=== PATIENT | female | born 1930 | race Caucasian/White ===

== ENCOUNTER 2016-10-24 05:03 | Inpatient (IN) | payer MEDICARE, OTHER ==
[2016-10-16 11:16] LABS: ASCORBIC ACID (UR NOT ORDER) NEG (NEG); BILIRUBIN, URINE NEGATIVE (NEG); KETONE, URINE NEGATIVE (NEG); LEUKOCYTE ESTERASE(NOT OR NEG (NEG); WBC (NOT ORDERED) (RFLEX) 1 (0-5)
[2016-10-16 11:20] LABS: BASOPHILS 1.1 %; BASOPHILS ABSOLUTE 0.06 10/3/uL (0.0-0.16); EOSINOPHILS 7.2 %; HEMATOCRIT 34.5 % (36.0-48.0); HEMOGLOBIN 10.8 g/dL (12.0-16.0); IMMATURE GRANULOCYTES 0.2 %; IMMATURE GRANULOCYTES ABSOLUTE 0.01 10/3/uL (0.0-0.11); LYMPHOCYTES 15.6 %; LYMPHOCYTES ABSOLUTE 0.86 10/3/uL (0.67-4.30); MEAN CORPUS HGB CONC 31.3 g/dL (32.0-36.0); MEAN CORPUSCULAR HEMOGLOB 29.6 pg (26.0-34.0); MEAN PLATELET VOLUME 8.7 fL (9.2-13.0); MONOCYTES 9.8 %; MONOCYTES ABSOLUTE 0.54 10/3/uL (0.21-1.20); NEUTROPHILS 66.1 %; NEUTROPHILS ABSOLUTE 3.65 10/3/uL (2.02-8.40); PLATELET COUNT 247 10/3/uL (150-400); RBC DISTRIBUTION WIDTH 16.3 % (12.0-16.0); RED CELL COUNT 3.65 10/6/uL (4.0-5.6); WHITE BLOOD CELLS 5.5 10/3/uL (4.5-10.5)
[2016-10-16 11:23] LABS: MANUAL DIFF NO %; MEAN CORPUSCULAR VOLUME 94.5 fL (80-100)
[2016-10-16 11:37] LABS: A/G RATIO 0.9 (0.7-1.9); ALBUMIN 3.2 G/DL (3.5-5.0); CALCIUM, SERUM 8.2 MG/DL (8.5-10.4); CHLORIDE, SERUM 102 MMOL/L (96-112); CO2 (CARBON DIOXIDE) 33 MMOL/L (24-34); CREATININE 1.26 MG/DL (0.55-1.02); GFR AFRICAN AMERICAN 46 ML/MIN (>=60); GFR NON AFRICAN AMERICAN 39 ML/MIN (>=60); GLOBULIN 3.7 G/DL (2.5-4.1); SGOT(AST) 40 U/L (5-40); SGPT(ALT) 33 U/L (5-65); SODIUM, SERUM 137 MMOL/L (135-148); TOTAL BILIRUBIN 0.4 MG/DL (0-1.2); TOTAL PROTEIN 6.9 G/DL (6.0-8.5)
[2016-10-16 11:38] LABS: ALKALINE PHOSPHATASE 106 U/L (45-117); BUN (BLOOD UREA NITROGEN) 26 MG/DL (6-23); GLUCOSE, SERUM 87 MG/DL (60-99)
[2016-10-16 11:58] LABS: INTERNATIONAL NORMAL RATI 1.2 UNITS (-); PROTIME (NOT ORD) 15.2 SEC (12.0-14.5)
[2016-10-16 12:55] LABS: GLYCOHEMOGLOBIN (HbA1c) 5.7 % (4.7-6.1)
[2016-10-16 13:51] LABS: B NATRIURETIC PEPTIDE (BNP) 302.5 PG/ML (< 100.0)
--- NOTE | ~2016-10-24 | DS ---
Discharge Summary [facility] [address] [place]. [address] NAME: FRANCK BUTLER : 32 STATUS : DIS IN PAT#: [id number] AGE: 85 ADM/REG DATE : 10/24/16 MR#: [id number] REPORT SERV DATE: 11/11/16 DICTATED BY: JESSICA PEREZ DATE: 11/10/16 REPORT STATUS : Draft TRANSCRIBED BY: BRENDA DATE: 11/10/16 Data Collection from hospitalization DISCHARGE DIAGNOSES: 1. Mitral valve regurgitation, status post MitraClip. 2. Hypertension. 3. Atrial fibrillation. 4. Sick sinus syndrome, status post pacer. 5. Pericardial effusion, status post drainage. 6. Right groin hematoma. 7. Hyperlipidemia. 8. Hypothyroidism. 9. Remote history of subarachnoid bleed. 10.History of orthostatic hypotension. 11.Pulmonary hypertension. CONSULTATIONS: Delfino Kramer M.D. PROCEDURES PERFORMED: Right transfemoral venous MitraClip procedure on 10/24/2016. MEDICATIONS: Aspirin 81 mg daily, Synthroid 75 mcg every morning, Zocor 20 mg at bedtime, Plavix 75 mg at bedtime, vitamin B12 1000 mcg IM every 30 days, Demadex 20 mg every morning, Klor-Con 16 mEq every morning, Cordarone 200 mg twice a day, and ProAir two puffs via inhaler every four hours as needed. CONDITION AT DISCHARGE: Stable. DISPOSITION: The patient was discharged to [facility] with diet and activities as instructed. She would follow up in the Valve Clinic on 11/23/2016. She would have an echocardiogram performed on 11/23/2016. She would follow up with Dr. Nate Armando on 01/09/2017. 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 Recent cardiac catheterization had revealed severe pulmonary hypertension. The patient has a history of permanent atrial fibrillation, heart failure, prior spontaneous intracranial hemorrhage and multiple fall. Transesophageal echocardiogram demonstrated severe mitral regurgitation with pulmonary venous flow reversal. She had been seen by the [facility] Team who felt she was a good candidate for a mitral valve MitraClip procedure. Treatment options had been discussed and it was elected to proceed with surgical intervention. She was admitted to the hospital at this time for further evaluation and treatment. Upon admission, she was taken to the hybrid room where she underwent the above-mentioned procedure. She tolerated this well, and there were no complications. The following day, an echocardiogram was performed. She was seen by Dr. Delfino Kramer. The patient had a right groin hematoma. There was no evidence of active bleeding. She had no chest pain or dyspnea. The drain remained in place. The patient was transfused two units of packed red blood cells. She was on Levophed. She was transfused. Discharge Summary [facility] [address] [place]. [address] NAME: FRANCK BUTLER : 32 STATUS : DIS IN PAT#: [id number] AGE: 85 ADM/REG DATE : 10/24/16 MR#: [id number] REPORT SERV DATE: 11/11/16 DICTATED BY: JESSICA PEREZ DATE: 11/10/16 REPORT STATUS : Draft TRANSCRIBED BY: BRENDA DATE: 11/10/16 On 10/26/2016, she had no chest pain or dyspnea. IV Levophed was stopped. Nausea had resolved. There had been 60 mL out of the drain over the past 24 hours. The drain remained in place. She has a decreased platelet count. Pepcid was stopped. Amiodarone was discontinued. Groin site was stable. The next day, there had been no issues overnight. Pericardial drain remained in place. Her nausea had improved. We encouraged her to increase her activity. Her anemia improved. Plavix was going to be added back to her regimen. She was evaluated by Occupational and Physical Therapy. A limited echocardiogram was performed. She was up sitting in a chair. On 10/28/2016, she felt well. Her discomfort had decreased. There were no new issues. There was some bruising in the right groin. The patient had a large hematoma with failed ProGlide during surgery. The next day, she had complaints of right leg pain only. She had no chest pain or shortness of breath. Discharge planning was performed. On 10/30/2016, she still complained of pain and bruising and limited range of motion in the right leg. She said she felt well. She was ambulating in the halls with assistance. Discharge instructions were given. Due to her improved and stable condition, she was discharged to [facility] with the above-stated instructions. Information collected by: Ladi Rodriguez I submit the above information as my discharge summary. MARIBEL/BRENDA Jessica Perez M.D. / [id number] CC: Freddy Lackey AZHAR S. [facility]
--- NOTE | ~2016-10-24 | OP ---
Record Of Operation [facility] [address] [place]. [address] NAME: KAREN BRISCOE : 32 STATUS : ADM IN PAT#: [id number] AGE: 85 ADM/REG DATE : 10/24/16 MR#: [id number] REPORT SERV DATE: 10/30/16 DICTATED BY: JESSICA PEREZ DATE: 10/24/16 REPORT STATUS : Draft TRANSCRIBED BY: BRENDA DATE: 10/24/16 DATE OF PROCEDURE: 10/24/2016 MITRACLIP NOTE PROCEDURE: Right transfemoral venous MitraClip procedure. INDICATIONS FOR THE PROCEDURE: Ms. Karen Briscoe is an 85-year-old woman with severe mitral regurgitation. She presents with class III [place] [employer] heart failure. Her history is also remarkable for permanent atrial fibrillation, permanent pacemaker, prior spontaneous intracranial hemorrhage, multiple falls. Her transesophageal echocardiogram demonstrated severe mitral regurgitation, with pulmonary venous flow reversal. Her predicted mortality with STS score for mitral valve repair was 4.6%, predicted morbidity and mortality of 24%. Her predicted mortality for mitral valve replacement was 8.1%, for morbidity and mortality 32%. She had very poor strength and was frail. She was seen by [facility] Valve Clinic team, who felt she was a good candidate for a mitral valve, MitraClip procedure. She saw Dr. Neville, Thoracic Surgery, who agreed that she was a good candidate for mitral valve clipping procedure, with [place] MitraClip device, rather than mitral valve repair. POSTOPERATIVE DIAGNOSES: 1. Successful repair of mitral regurgitation using one [place] MitraClip device. 2. Image of pericardial tamponade with pigtail catheter. OPERATIVE TECHNIQUE: Informed consent was obtained from the patient. The procedure was performed in the hybrid room, the patient was placed in the supine position. The patient was intubated, had a Patrick catheter inserted, a radial A-line, and a right heart catheter, placed via the right IJ approach. This procedure was performed with the assistance of the [employer] MitraClip contracts representative. The patient was prepped and draped in the usual sterile fashion. The right groin was anesthetized with lidocaine 1% 8 mL. Access of the right femoral vein was easily obtained using micropuncture technique. Two ProGlide sutures were placed at the 10 o'clock and 2 o'clock position in the pre-close technique. We proceeded with a transseptal puncture using the Anirudh Transseptal System. The Anirudh transseptal sheath was placed into the superior vena cava over the 0.32 inch wire. The transseptal sheath was pulled into the right atrium under fluoroscopic and transesophageal echocardiogram guidance. The optimal location for the transseptal puncture was identified by transesophageal echocardiogram using both the short and bicaval views. The transseptal puncture was performed with a Anirudh System. Once access to the left atrium was confirmed, heparin was delivered to maintain activated clotting time greater than 250 seconds. Once we were in the left atrium, the dilator and sheath were advanced in the left atrium, with position confirmed by transesophageal echocardiogram in the left atrium, away from the left atrial wall, and the Anirudh FloTrack wire was placed into the left atrium. Record Of Operation [facility] [address] [place]. [address] NAME: KAREN BRISCOE : 32 STATUS : ADM IN PAT#: [id number] AGE: 85 ADM/REG DATE : 10/24/16 MR#: [id number] REPORT SERV DATE: 10/30/16 DICTATED BY: JESSICA PEREZ DATE: 10/24/16 REPORT STATUS : Draft TRANSCRIBED BY: BRENDA DATE: 10/24/16 Once the FloTrack wire was in the left atrium, the right groin was dilated using the 14 and 20-Iranian dilators. [place] Steerable Guide Catheter was carefully de-aired, advanced across the interatrial septum into the left atrium. The Clip Delivery System was then advanced into the left atrium. Using BHANU guidance and following the [place] MitraClip instructions for use, the clip was delivered over the regurgitant jet. The clip was aligned perpendicular to the mitral regurgitation jet prior to enter the left ventricle. The leaflets were then grasped and leaflet insertion confirmed prior to mitral clip closure. The results were assessed prior to clip deployment. There was reduction of the mitral regurgitation from severe to mild. The gradient across the mitral valve was assessed. The leaflet insertion into the clip was confirmed, the reduction of the mitral regurgitation from severe to mild was confirmed, the resolution of the pulmonary vein flow reversal was confirmed as well. The [place] MitraClip was successfully deployed. The Clip Delivery System was removed. The steerable guide catheter was removed. The two ProGlide sutures were tightened to obtain hemostasis. However, both ProGlide sutures . Manual pressure was held, and Dr. Neville placed a eggvit-ob-pluee suture at the access site. During the procedure, the patient became hypotensive. The transesophageal echocardiogram and transthoracic echocardiogram demonstrated a medium-sized pericardial effusion. With successful deployment of a MitraClip, the heparin was reversed with protamine. The chest wall was prepped and draped in the usual sterile fashion. Lidocaine 1% 3 mL was used to anesthetize the area below the subxiphoid process. A pericardiocentesis kit was used, with antegrade aspiration, blood was immediately removed from the pericardial space. A total 500 mL of blood was aspirated. This blood was discarded. We then placed a wire into the pericardial space, confirmed by echocardiogram and fluoroscopy. A pigtail catheter was placed in to the pericardium. Repeat echocardiogram, while she is still in the room 30 minutes later demonstrated no reaccumulation of the pericardial fluid. The patient was transferred to the CVICU, intubated, the right heart catheter in position, the radial A-line in position, a FemoStop at the right groin to maintain pressure on the access site, and a pigtail catheter in the pericardial space. The total fluoro time was 32.1 minute. The total radiation dose was 252 mGy. The DAP was 6911 Gy/M2. The procedure start time was 7:34 a.m. on 10/24/2016, the anesthesia inducti was 7:48 a.m., the procedure access was performed at 7:55 a.m., the transseptal access was performed at 8:49 a.m., the steerable guide catheter was placed across the interatrial septum at 9:39 a.m. The last cath, BHANU removal was at 12:37 p.m. The septum was crossed at 8:50 a.m. The delivery system was retracted at 12:01 a.m. The steerable guide catheter was removed at 12:05 p.m. The patient had primary degenerative mitral regurgitation, with a central jet. The vena contract was 0.8 cm, the EROA was 0.48 sq cm, regurgitant volume was 86 mL. The mitral valve area by planimetry of 4.2 sq cm. There was pulmonary flow reversal prior to this Record Of Operation [address] [place]. [address] NAME: KAREN BRISCOE : 32 STATUS : ADM IN PAT#: [id number] AGE: 85 ADM/REG DATE : 10/24/16 MR#: [id number] REPORT SERV DATE: 10/30/16 DICTATED BY: JESSICA PEREZ DATE: 10/24/16 REPORT STATUS : Draft TRANSCRIBED BY: BRENDA DATE: 10/24/16 procedure. Ejection fraction of 55% to 60%. There was 2+ tricuspid regurgitation. The septal crossing height was 3.9 mm. The mean gradient was 2 mmHg. Postprocedure, there was 2+ mitral regurgitation, medium. The mitral valve area of lateral orifice was 1.6 sq cm, 1.8 sq cm in the medial orifice. There was no flow reversal. Ejection fraction 50% to 55%. The right ventricle systolic pressure was approximately 29 mmHg. The mean gradient across the mitral valve and lateral orifice was 2 mmHg, 2 mmHg in the medial orifice. In short, Ms. Briscoe underwent successful mitral valve repair using one MitraClip via the right transfemoral approach. The mitral regurgitation went from severe to mild to moderate, there was resolution of the pulmonary venous flow reversal. The procedure was complicated by a pericardial tamponade which was successfully treated by pericardiocentesis, 500 mL of blood was removed. She also developed a right groin hematoma, which was treated with a zcbgbz-zf-ebjjh stitch in manual compression. She will be transferred to the Cardiovascular ICU intubated, on no pressors, the pigtail in the pericardium. We will follow her intracardiac pressures, hematocrit, and hemodynamics. We will perform serial echocardiograms to evaluate for reaccumulation of the pericardial fluid. OPERATORS: Josh Manning M.D., Jessica Perez M.D., and Eric Neville M.D. MT/BRENDA Jessica Perez M.D. / [id number] CC: Freddy Lackey MD
--- NOTE | ~2016-10-24 | TEE ---
Transesophageal Echocardiogram [address] [place]. [address] NAME: FRANCK BUTLER : 32 STATUS : ADM IN PAT#: [id number] AGE: 85 ADM/REG DATE : 10/24/16 MR#: [id number] REPORT SERV DATE: 10/24/16 DICTATED BY: PHILIP PERES DATE: 10/24/16 REPORT STATUS : Draft TRANSCRIBED BY: MODL DATE: 10/24/16 REQUESTING PROVIDERS: Josh Manning M.D.; Flaco Perez M.D.; and Eric Neville MD of the MitraClip Team. INDICATION OF PROCEDURE: An 85-year-old with severe symptomatic mitral regurgitation for continuous procedural monitoring and guidance of MitraClip procedure. PROCEDURES PERFORMED: Included 2D, 3D, color, and spectral Doppler. 3D interrogation of the mitral valve was performed with personal online manual manipulation of 3D data set to further assess mitral valve anatomy and MitraClip delivery. TECH: The tech was TD and the overall quality of study was good. Informed consent was obtained, signed on the chart prior to proceeding. A time-out was performed. Sedation and endotracheal intubation with anesthesia was performed. Esophageal intubation was per cardiac anesthesia. 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 The mitral leaflets are thickened and there is bileaflet prolapse, most notably of the lateral side of A2-P2 segment. Leaflets are mildly thickened and there is mildly restricted mobility of the posterior leaflet, P3 segment. There is severe eccentric mitral regurgitation with multiple jets. Predominant central commissural jet was noted. The etiology of the mitral regurgitation with degenerative consistent with Stefano II classification. There was overall severe mitral regurgitation. The calculated ERO by PISA was 0.48 cm2. The vena contracta was 0.8 cm. The mitral regurgitant volume by PISA calculation was 86 mL. This was obtained with a mitral radius of 1.0 cm with a Nyquist shift at 37.1 cm/second and a systolic blood pressure of 120 mmHg. The initial mitral valve area is 4.2 cm by direct 3D planimetry. Left superior and right superior pulmonary veins were noted and there was systolic flow reversal noted in the left superior pulmonary vein with blunted systolic flow noted in the right superior pulmonary vein. The mean transmitral gradient preprocedure was 2-3 mmHg. The resting LVEF preprocedure is 55%-60%. There was an anteroseptal wall motion abnormality with an underlying paced rhythm. There was mild tricuspid regurgitation with an estimated right ventricular systolic pressure of 36 mmHg. The septal crossing height was measured at 3.9 cm. OTHER: The left atrium was moderately dilated. The interatrial septum was intact with no interatrial shunt preprocedure. There was trivial pericardial fluid preprocedure. MitraClip BHANU guided superior-posterior transseptal puncture was performed and was successful. MitraClip was positioned perpendicular to the lateral aspect of A2-P2 after appropriate manipulations. After adequate leaflet grasping was confirmed, the MitraClip was closed under color at the "commissural view" of 60 degrees. This was technically an excellent result with a good "tissue bridge." Followup evaluation confirmed only mild mitral regurgitation, just medial to the MitraClip. The lateral orifice area is 1.63 cm2 with a medial orifice area of 1.77 cm2, overall area of 3.2 cm2. Pulmonary vein flow Transesophageal Echocardiogram [address] [address] NAME: FRANCK BUTLER : 32 STATUS : ADM IN PAT#: [id number] AGE: 85 ADM/REG DATE : 10/24/16 MR#: [id number] REPORT SERV DATE: 10/24/16 DICTATED BY: PHILIP PERES DATE: 10/24/16 REPORT STATUS : Draft TRANSCRIBED BY: MODL DATE: 10/24/16 reversal and systolic blunting were eliminated. Postprocedure, LVEF dropped slightly to 50% 55% with persistent anteroseptal hypocontractility secondary to a paced rhythm. The lateral orifice gradient was 2 mmHg and the medial orifice gradient was 2 mmHg. Restricted mobility of the leaflets tips from MitraClip deployment was noted. The MitraClip appeared to be well positioned and stable. Postprocedure, there was mild tricuspid regurgitation with a peak TR jet corresponding to a right ventricular systolic pressure of 29 mmHg. There was a small residual postprocedure atrial septal defect with left-right interatrial shunt seen on color Doppler only. COMPLICATIONS: During the procedure, there was hemodynamic compromise with acute hypotension, managed by Anesthesia. Small pericardial fluid collection was noted adjacent to the right atrium. Towards the end the procedure, pericardial effusion was more prominent. By the end of the procedure, there was refractory hypotension and a large circumferential pericardial effusion, immediately treated with pericardiocentesis and drain placement at the end of the procedure with immediate hemodynamic recovery. 500 mL of bloody fluid was evacuated and resolution of the pericardial effusion was confirmed on both transesophageal and transthoracic echocardiograms. The patient was placed in the CVICU in stable condition off all hemodynamic support. CONCLUSION: 1. SUCCESSFUL DEPLOYMENT OF MITRACLIP ALONG THE LATERAL ASPECT OF A2-P2 WITH SUCCESSFUL TREATMENT OF SEVERE MITRAL REGURGITATION, STEFANO II ETIOLOGY FROM DEGENERATIVE THICKENING AND PROLAPSE, TO ONLY MILD RESIDUAL MITRAL VALVE REGURGITATION WITH SIGNIFICANT IMPROVEMENT IN HEMODYNAMIC OUTLINED ABOVE. 2. TINY ATRIAL SEPTAL DEFECT WITH LEFT-RIGHT INTERATRIAL SHUNT SEEN BY COLOR DOPPLER ONLY. 3. PROCEDURE COMPLICATED BY PERICARDIAL EFFUSION AND TAMPONADE, IMMEDIATELY TREATED WITH PERICARDIOCENTESIS AND IMMEDIATE HEMODYNAMIC RECOVERY AND RESOLUTION OF EFFUSION DESCRIBED ABOVE. MIHAELA/BRENDA Philip Peres M.D. / [id number] CC: Josh Manning M.D.
[~2016-10-24 05:03] MED LIST: AMIODARONE PO; ASAB PO; ASAEC PO; AVAP150 PO; B121000P IM; CORDARONE PO; DEMA20 PO; DSS PO; FLORINEF0.1 MG PO; HALF81 PO; HARD NAILS PO; KLOR-CON 88 MEQ PO; L20 PO; MONODOX100 MG PO; NORV5 PO; PLAVIX PO; PREDNISONE; PROAIRRESP INH; PROAMAT5 PO; PROBIOTIC PO; SYN075 PO; SYN1 PO; VIT B IM; ZOCOR20 PO; ZOCOR40 PO
[2016-10-24 06:27] LABS: MAX AMP (ADP) 62.7 MM (35-68); TEG - ANGLE 74.9 DEG (53-72); TEG - COAGULATION INDEX 2.1 (-3 TO 3); TEG - RATE 5.8 MIN (5.0-10.0); TEG PLAVIX/EFFIENT/TICLID(ADP) 13.7 % INHIB (< 40)
[2016-10-24 13:47] LABS: BE (BASE EXCESS) 0.2 MEQ/L (0 +/- 2.5); CARBOXYHEMOGLOBIN 0.3 % (0-3); HCO3 (ACTUAL BICARBONATE) 22.8 MEQ/L (23-27); HEMOBLOGIN CONTENT 7.9 G/DL (12-16); INSTRUMENT SERIAL # 11843; METHEMOGLOBIN 0.6 % (0-3); MODE SIMV; O2 CONTENT 12.2 VOL% (18-24); OPERATOR ID 13715; PCO2 (CO2 TENSION) 29 MMHG (35-45); PO2 (O2 TENSION) 462 MMHG (79-93); PRESSURE SUPPORT 8 cm.H2O; SAMPLE Arterial; TIDAL VOLUME 650 ML; pH 7.52 (7.37-7.43)
[2016-10-24 16:29] LABS: BASOPHILS 0.2 %; BASOPHILS ABSOLUTE 0.02 10/3/uL (0.0-0.16); EOSINOPHILS 2.4 %; EOSINOPHILS ABSOLUTE 0.24 10/3/uL (0.0-0.53); IMMATURE GRANULOCYTES 0.5 %; IMMATURE GRANULOCYTES ABSOLUTE 0.05 10/3/uL (0.0-0.11); LYMPHOCYTES 9.7 %; LYMPHOCYTES ABSOLUTE 0.97 10/3/uL (0.67-4.30); MEAN CORPUS HGB CONC 32.1 g/dL (32.0-36.0); MEAN CORPUSCULAR VOLUME 93.3 fL (80-100); MEAN PLATELET VOLUME 8.7 fL (9.2-13.0); NEUTROPHILS 79.2 %; NEUTROPHILS ABSOLUTE 7.93 10/3/uL (2.02-8.40); PLATELET COUNT 185 10/3/uL (150-400); RBC DISTRIBUTION WIDTH 16.9 % (12.0-16.0)
[2016-10-24 16:30] LABS: HEMATOCRIT 22.4 % (36.0-48.0); HEMOGLOBIN 7.2 g/dL (12.0-16.0); MANUAL DIFF NO %
[2016-10-24 16:39] LABS: BUN (BLOOD UREA NITROGEN) 22 MG/DL (6-23); CALCIUM, SERUM 8.1 MG/DL (8.5-10.4); CHLORIDE, SERUM 111 MMOL/L (96-112); CO2 (CARBON DIOXIDE) 26 MMOL/L (24-34); CREATININE 0.93 MG/DL (0.55-1.02); GFR AFRICAN AMERICAN 66 ML/MIN (>=60); GFR NON AFRICAN AMERICAN 57 ML/MIN (>=60); GLUCOSE, SERUM 138 MG/DL (60-99); POTASSIUM, SERUM 3.9 MMOL/L (3.5-5.3); SODIUM, SERUM 144 MMOL/L (135-148)
[2016-10-24 16:40] LABS: INTERNATIONAL NORMAL RATI 1.5 UNITS (-)
[2016-10-24 16:41] LABS: PARTIAL THROMBO TIME 83.6 SEC (22.5-37.2)
[2016-10-24 17:03] LABS: BUN (BLOOD UREA NITROGEN) 22 MG/DL (6-23); CALCIUM, SERUM 7.9 MG/DL (8.5-10.4); CHLORIDE, SERUM 110 MMOL/L (96-112); CO2 (CARBON DIOXIDE) 25 MMOL/L (24-34); CREATININE 0.95 MG/DL (0.55-1.02); GFR AFRICAN AMERICAN 64 ML/MIN (>=60); GFR NON AFRICAN AMERICAN 55 ML/MIN (>=60); GLUCOSE, SERUM 151 MG/DL (60-99); POTASSIUM, SERUM 3.9 MMOL/L (3.5-5.3); SODIUM, SERUM 144 MMOL/L (135-148)
[2016-10-24 17:34] LABS: BASOPHILS 0.3 %; BASOPHILS ABSOLUTE 0.03 10/3/uL (0.0-0.16); EOSINOPHILS 0.5 %; EOSINOPHILS ABSOLUTE 0.05 10/3/uL (0.0-0.53); HEMOGLOBIN 8.4 g/dL (12.0-16.0); IMMATURE GRANULOCYTES 0.4 %; IMMATURE GRANULOCYTES ABSOLUTE 0.04 10/3/uL (0.0-0.11); LYMPHOCYTES 7.5 %; LYMPHOCYTES ABSOLUTE 0.72 10/3/uL (0.67-4.30); MEAN CORPUS HGB CONC 32.3 g/dL (32.0-36.0); MEAN CORPUSCULAR HEMOGLOB 29.9 pg (26.0-34.0); MEAN CORPUSCULAR VOLUME 92.5 fL (80-100); MEAN PLATELET VOLUME 8.8 fL (9.2-13.0); MONOCYTES 8.1 %; MONOCYTES ABSOLUTE 0.78 10/3/uL (0.21-1.20); NEUTROPHILS 83.2 %; PLATELET COUNT 166 10/3/uL (150-400); RBC DISTRIBUTION WIDTH 16.5 % (12.0-16.0); RED CELL COUNT 2.81 10/6/uL (4.0-5.6); WHITE BLOOD CELLS 9.6 10/3/uL (4.5-10.5)
[2016-10-24 17:35] LABS: MANUAL DIFF NO %
[2016-10-24 18:16] LABS: BE (BASE EXCESS) -2.7 MEQ/L (0 +/- 2.5); CARBOXYHEMOGLOBIN 0.2 % (0-3); DEVICE NC; HCO3 (ACTUAL BICARBONATE) 21.8 MEQ/L (23-27); HEMOBLOGIN CONTENT 8.4 G/DL (12-16); INSTRUMENT SERIAL # 11843; METHEMOGLOBIN 0.6 % (0-3); O2 CONTENT 11.8 VOL% (18-24); OPERATOR ID 13715; PCO2 (CO2 TENSION) 36 MMHG (35-45); PO2 (O2 TENSION) 132 MMHG (79-93); SAMPLE Arterial
[2016-10-24 22:31] LABS: BASOPHILS 0.2 %; BASOPHILS ABSOLUTE 0.03 10/3/uL (0.0-0.16); EOSINOPHILS 0 %; HEMOGLOBIN 7.4 g/dL (12.0-16.0); IMMATURE GRANULOCYTES 0.3 %; IMMATURE GRANULOCYTES ABSOLUTE 0.04 10/3/uL (0.0-0.11); LYMPHOCYTES 2.7 %; LYMPHOCYTES ABSOLUTE 0.35 10/3/uL (0.67-4.30); MEAN CORPUS HGB CONC 32.6 g/dL (32.0-36.0); MEAN CORPUSCULAR HEMOGLOB 30.1 pg (26.0-34.0); MEAN CORPUSCULAR VOLUME 92.3 fL (80-100); MEAN PLATELET VOLUME 8.7 fL (9.2-13.0); MONOCYTES 8.3 %; MONOCYTES ABSOLUTE 1.09 10/3/uL (0.21-1.20); NEUTROPHILS 88.5 %; NEUTROPHILS ABSOLUTE 11.57 10/3/uL (2.02-8.40); PLATELET COUNT 160 10/3/uL (150-400); RBC DISTRIBUTION WIDTH 16.8 % (12.0-16.0); RED CELL COUNT 2.46 10/6/uL (4.0-5.6); WHITE BLOOD CELLS 13.1 10/3/uL (4.5-10.5)
[2016-10-24 22:33] LABS: HEMATOCRIT 22.7 % (36.0-48.0); MANUAL DIFF NO %
[2016-10-25 03:50] LABS: BASOPHILS 0.4 %; BASOPHILS ABSOLUTE 0.05 10/3/uL (0.0-0.16); EOSINOPHILS 0.1 %; EOSINOPHILS ABSOLUTE 0.01 10/3/uL (0.0-0.53); HEMATOCRIT 22.4 % (36.0-48.0); HEMOGLOBIN 7.2 g/dL (12.0-16.0); IMMATURE GRANULOCYTES 0.5 %; IMMATURE GRANULOCYTES ABSOLUTE 0.06 10/3/uL (0.0-0.11); LYMPHOCYTES 6.3 %; LYMPHOCYTES ABSOLUTE 0.75 10/3/uL (0.67-4.30); MANUAL DIFF NO %; MEAN CORPUS HGB CONC 32.1 g/dL (32.0-36.0); MEAN CORPUSCULAR HEMOGLOB 29.8 pg (26.0-34.0); MEAN CORPUSCULAR VOLUME 92.6 fL (80-100); MEAN PLATELET VOLUME 8.7 fL (9.2-13.0); MONOCYTES 9.8 %; MONOCYTES ABSOLUTE 1.16 10/3/uL (0.21-1.20); NEUTROPHILS 82.9 %; NEUTROPHILS ABSOLUTE 9.85 10/3/uL (2.02-8.40); PLATELET COUNT 193 10/3/uL (150-400); RBC DISTRIBUTION WIDTH 16.9 % (12.0-16.0); RED CELL COUNT 2.42 10/6/uL (4.0-5.6); WHITE BLOOD CELLS 11.9 10/3/uL (4.5-10.5)
[2016-10-25 04:01] LABS: BUN (BLOOD UREA NITROGEN) 21 MG/DL (6-23); CALCIUM, SERUM 7.6 MG/DL (8.5-10.4); CHLORIDE, SERUM 109 MMOL/L (96-112); CO2 (CARBON DIOXIDE) 27 MMOL/L (24-34); CREATININE 0.92 MG/DL (0.55-1.02); GFR AFRICAN AMERICAN 67 ML/MIN (>=60); GFR NON AFRICAN AMERICAN 58 ML/MIN (>=60); GLUCOSE, SERUM 138 MG/DL (60-99); POTASSIUM, SERUM 4.2 MMOL/L (3.5-5.3); SODIUM, SERUM 142 MMOL/L (135-148)
[2016-10-25 16:19] LABS: BASOPHILS 0.3 %; BASOPHILS ABSOLUTE 0.03 10/3/uL (0.0-0.16); EOSINOPHILS 0.3 %; EOSINOPHILS ABSOLUTE 0.03 10/3/uL (0.0-0.53); IMMATURE GRANULOCYTES 0.4 %; IMMATURE GRANULOCYTES ABSOLUTE 0.04 10/3/uL (0.0-0.11); LYMPHOCYTES 7.3 %; LYMPHOCYTES ABSOLUTE 0.66 10/3/uL (0.67-4.30); MEAN CORPUS HGB CONC 32.7 g/dL (32.0-36.0); MEAN CORPUSCULAR HEMOGLOB 29.8 pg (26.0-34.0); MEAN CORPUSCULAR VOLUME 91.1 fL (80-100); MEAN PLATELET VOLUME 8.4 fL (9.2-13.0); MONOCYTES 14.1 %; MONOCYTES ABSOLUTE 1.27 10/3/uL (0.21-1.20); NEUTROPHILS 77.6 %; NEUTROPHILS ABSOLUTE 6.99 10/3/uL (2.02-8.40); RBC DISTRIBUTION WIDTH 16.3 % (12.0-16.0)
[2016-10-25 16:20] LABS: HEMATOCRIT 27.8 % (36.0-48.0); HEMOGLOBIN 9.1 g/dL (12.0-16.0); MANUAL DIFF NO %; PLATELET COUNT 125 10/3/uL (150-400); RED CELL COUNT 3.05 10/6/uL (4.0-5.6)
[2016-10-26 03:27] LABS: BASOPHILS 0.3 %; BASOPHILS ABSOLUTE 0.02 10/3/uL (0.0-0.16); EOSINOPHILS 0.5 %; EOSINOPHILS ABSOLUTE 0.03 10/3/uL (0.0-0.53); HEMATOCRIT 25.1 % (36.0-48.0); HEMOGLOBIN 8.2 g/dL (12.0-16.0); IMMATURE GRANULOCYTES 0.3 %; IMMATURE GRANULOCYTES ABSOLUTE 0.02 10/3/uL (0.0-0.11); LYMPHOCYTES 11.3 %; LYMPHOCYTES ABSOLUTE 0.75 10/3/uL (0.67-4.30); MEAN CORPUS HGB CONC 32.7 g/dL (32.0-36.0); MEAN CORPUSCULAR HEMOGLOB 29.9 pg (26.0-34.0); MEAN CORPUSCULAR VOLUME 91.6 fL (80-100); MEAN PLATELET VOLUME 8.4 fL (9.2-13.0); MONOCYTES 13.6 %; NEUTROPHILS ABSOLUTE 4.91 10/3/uL (2.02-8.40); PLATELET COUNT 104 10/3/uL (150-400); RBC DISTRIBUTION WIDTH 16.7 % (12.0-16.0); RED CELL COUNT 2.74 10/6/uL (4.0-5.6); WHITE BLOOD CELLS 6.6 10/3/uL (4.5-10.5)
[2016-10-26 03:30] LABS: MANUAL DIFF NO %
[2016-10-26 03:45] LABS: CHLORIDE, SERUM 110 MMOL/L (96-112); CO2 (CARBON DIOXIDE) 27 MMOL/L (24-34); CREATININE 0.75 MG/DL (0.55-1.02); GFR AFRICAN AMERICAN 85 ML/MIN (>=60); GFR NON AFRICAN AMERICAN 74 ML/MIN (>=60); POTASSIUM, SERUM 4.2 MMOL/L (3.5-5.3); SODIUM, SERUM 142 MMOL/L (135-148)
[2016-10-26 03:47] LABS: BUN (BLOOD UREA NITROGEN) 17 MG/DL (6-23); GLUCOSE, SERUM 100 MG/DL (60-99)
[2016-10-27 00:02] LABS: HEMATOCRIT 25.8 % (36.0-48.0); HEMOGLOBIN 8.6 g/dL (12.0-16.0)
[2016-10-27 04:34] LABS: BASOPHILS 0.3 %; BASOPHILS ABSOLUTE 0.02 10/3/uL (0.0-0.16); EOSINOPHILS 3.6 %; EOSINOPHILS ABSOLUTE 0.22 10/3/uL (0.0-0.53); HEMATOCRIT 27.3 % (36.0-48.0); HEMOGLOBIN 8.8 g/dL (12.0-16.0); IMMATURE GRANULOCYTES 0.5 %; IMMATURE GRANULOCYTES ABSOLUTE 0.03 10/3/uL (0.0-0.11); LYMPHOCYTES 12.6 %; LYMPHOCYTES ABSOLUTE 0.77 10/3/uL (0.67-4.30); MEAN CORPUS HGB CONC 32.2 g/dL (32.0-36.0); MEAN CORPUSCULAR HEMOGLOB 29.9 pg (26.0-34.0); MEAN CORPUSCULAR VOLUME 92.9 fL (80-100); MEAN PLATELET VOLUME 8.9 fL (9.2-13.0); MONOCYTES 9.2 %; MONOCYTES ABSOLUTE 0.56 10/3/uL (0.21-1.20); NEUTROPHILS 73.8 %; NEUTROPHILS ABSOLUTE 4.52 10/3/uL (2.02-8.40); PLATELET COUNT 112 10/3/uL (150-400); RED CELL COUNT 2.94 10/6/uL (4.0-5.6); WHITE BLOOD CELLS 6.1 10/3/uL (4.5-10.5)
[2016-10-27 04:37] LABS: MANUAL DIFF NO %
[2016-10-27 04:43] LABS: BUN (BLOOD UREA NITROGEN) 16 MG/DL (6-23); CHLORIDE, SERUM 108 MMOL/L (96-112); CO2 (CARBON DIOXIDE) 28 MMOL/L (24-34); CREATININE 0.74 MG/DL (0.55-1.02); GFR AFRICAN AMERICAN 87 ML/MIN (>=60); GFR NON AFRICAN AMERICAN 75 ML/MIN (>=60); GLUCOSE, SERUM 101 MG/DL (60-99); POTASSIUM, SERUM 4.2 MMOL/L (3.5-5.3); SODIUM, SERUM 140 MMOL/L (135-148)
[2016-10-28 06:35] LABS: BASOPHILS 0.4 %; BASOPHILS ABSOLUTE 0.03 10/3/uL (0.0-0.16); EOSINOPHILS ABSOLUTE 0.41 10/3/uL (0.0-0.53); HEMATOCRIT 28.6 % (36.0-48.0); HEMOGLOBIN 9.2 g/dL (12.0-16.0); IMMATURE GRANULOCYTES 0.4 %; IMMATURE GRANULOCYTES ABSOLUTE 0.03 10/3/uL (0.0-0.11); LYMPHOCYTES 14.3 %; LYMPHOCYTES ABSOLUTE 0.97 10/3/uL (0.67-4.30); MEAN CORPUS HGB CONC 32.2 g/dL (32.0-36.0); MEAN CORPUSCULAR HEMOGLOB 30.2 pg (26.0-34.0); MEAN CORPUSCULAR VOLUME 93.8 fL (80-100); MEAN PLATELET VOLUME 8.9 fL (9.2-13.0); MONOCYTES 10.6 %; MONOCYTES ABSOLUTE 0.72 10/3/uL (0.21-1.20); NEUTROPHILS 68.3 %; NEUTROPHILS ABSOLUTE 4.62 10/3/uL (2.02-8.40); PLATELET COUNT 135 10/3/uL (150-400); RBC DISTRIBUTION WIDTH 16.9 % (12.0-16.0); RED CELL COUNT 3.05 10/6/uL (4.0-5.6); WHITE BLOOD CELLS 6.8 10/3/uL (4.5-10.5)
[2016-10-28 06:36] LABS: MANUAL DIFF NO %
[2016-10-28 06:47] LABS: BUN (BLOOD UREA NITROGEN) 14 MG/DL (6-23); CALCIUM, SERUM 8.1 MG/DL (8.5-10.4); CHLORIDE, SERUM 107 MMOL/L (96-112); CO2 (CARBON DIOXIDE) 28 MMOL/L (24-34); CREATININE 0.77 MG/DL (0.55-1.02); GFR AFRICAN AMERICAN 83 ML/MIN (>=60); GFR NON AFRICAN AMERICAN 71 ML/MIN (>=60); GLUCOSE, SERUM 101 MG/DL (60-99); POTASSIUM, SERUM 4.3 MMOL/L (3.5-5.3); SODIUM, SERUM 140 MMOL/L (135-148)
[2016-10-29 05:47] LABS: BASOPHILS 0.4 %; BASOPHILS ABSOLUTE 0.03 10/3/uL (0.0-0.16); EOSINOPHILS 6.1 %; EOSINOPHILS ABSOLUTE 0.48 10/3/uL (0.0-0.53); HEMATOCRIT 29.9 % (36.0-48.0); HEMOGLOBIN 9.6 g/dL (12.0-16.0); IMMATURE GRANULOCYTES 0.4 %; IMMATURE GRANULOCYTES ABSOLUTE 0.03 10/3/uL (0.0-0.11); LYMPHOCYTES 10.6 %; LYMPHOCYTES ABSOLUTE 0.83 10/3/uL (0.67-4.30); MEAN CORPUS HGB CONC 32.1 g/dL (32.0-36.0); MEAN CORPUSCULAR HEMOGLOB 30.5 pg (26.0-34.0); MEAN CORPUSCULAR VOLUME 94.9 fL (80-100); MEAN PLATELET VOLUME 9.2 fL (9.2-13.0); MONOCYTES 10.3 %; MONOCYTES ABSOLUTE 0.81 10/3/uL (0.21-1.20); NEUTROPHILS 72.2 %; NEUTROPHILS ABSOLUTE 5.65 10/3/uL (2.02-8.40); NUCLEATED RED BLOOD CELLS 0.4 /100WBC (0-0); PLATELET COUNT 157 10/3/uL (150-400); RBC DISTRIBUTION WIDTH 17.1 % (12.0-16.0); RED CELL COUNT 3.15 10/6/uL (4.0-5.6); WHITE BLOOD CELLS 7.8 10/3/uL (4.5-10.5)
[2016-10-29 05:49] LABS: MANUAL DIFF NO %
[2016-10-29 05:59] LABS: BUN (BLOOD UREA NITROGEN) 13 MG/DL (6-23); CALCIUM, SERUM 8.1 MG/DL (8.5-10.4); CHLORIDE, SERUM 108 MMOL/L (96-112); CO2 (CARBON DIOXIDE) 28 MMOL/L (24-34); CREATININE 0.61 MG/DL (0.55-1.02); GFR AFRICAN AMERICAN 97 ML/MIN (>=60); GFR NON AFRICAN AMERICAN 84 ML/MIN (>=60); GLUCOSE, SERUM 102 MG/DL (60-99); POTASSIUM, SERUM 4.2 MMOL/L (3.5-5.3); SODIUM, SERUM 140 MMOL/L (135-148)
[2016-11-14] MEDS ORDERED: ZOFRAN4 PO (19:29)
[2016-11-14] MEDS ORDERED: PROTONIX PO (19:29)
[2016-11-14] MEDS ORDERED: DEMA20 PO (19:29)
[2016-11-14] MEDS ORDERED: SYN075 PO (19:30)
[2016-11-14] MEDS ORDERED: MICRO-K8 MEQ PO (19:30)
[2016-11-14] MEDS ORDERED: ZOCOR20 PO (19:31)
[2016-11-14] MEDS ORDERED: PROAIR HFA INH (19:31)
[2016-11-14] MEDS ORDERED: PLAVIX PO (19:31)
[2016-11-14] MEDS ORDERED: ASAB PO (19:32)
[2016-11-14] MEDS ORDERED: CORDARONE PO (19:33)
[2016-11-14] MEDS ORDERED: PROBIOTIC OTC PO (19:33)
[2016-11-14] MEDS ORDERED: B121000P IM/SC (19:33)
[2016-11-14] MEDS ORDERED: PR12.5 PO (19:34)
[2017-01-11] MEDS ORDERED: ATEN25 PO (11:29)
[2017-01-11] MEDS ORDERED: PROAIRRESP INH (11:29)
== END 2016-10-30 15:47 | DRG 228 ==
LOC: SDC/OF 05:03 → CVICU 10:45 → 5NO 10-26 14:40
PROVIDERS: Internal Medicine Cardiovascular Disease
PROC: B246ZZ4 Ultrasonography of Right and Left Heart, Transesophageal (ICD-10-PCS; 2016-10-24)
PROC: B246YZZ Ultrasonography of Right and Left Heart using Other Contrast (ICD-10-PCS; 2016-10-24)
PROC: 0W9D3ZZ Drainage of Pericardial Cavity, Percutaneous Approach (ICD-10-PCS; 2016-10-24)
PROC: 02UG3JZ Supplement Mitral Valve with Synthetic Substitute, Percutaneous Approach (ICD-10-PCS; principal; 2016-10-24 06:30)
PROC: 30233N1 Transfusion of Nonautologous Red Blood Cells into Peripheral Vein, Percutaneous Approach (ICD-10-PCS; 2016-10-26)
DX: I34.0 Nonrheumatic mitral (valve) insufficiency (principal); I50.33 Acute on chronic diastolic (congestive) heart failure; I30.9 Acute pericarditis, unspecified; I95.89 Other hypotension; D62 Acute posthemorrhagic anemia; Z00.6 Encounter for examination for normal comparison and control in clinical research program; I48.2 Chronic atrial fibrillation; I10 Essential (primary) hypertension; Z95.0 Presence of cardiac pacemaker; E03.9 Hypothyroidism, unspecified
CPT/HCPCS: 31720; 33010; 33418; 36415; 71010; 71020; 76930; 80048; 80053; 81001; 82272; 82330; 82803; 82805; 82947; 82962; 83036; 83735; 83880; 84132; 84295; 85014; 85018; 85025; 85347; 85384; 85576; 85576-59; 85610; 85730; 86850; 86900; 86901; 86920; 87641; 93005; 93306; 93308; 94002; 94660; 94770; 97116-GP; 97162-GP; 97166-GO; 97535-GO; A9270-GY; C1751; C1760; C1769; C1893; C1894; C9113; G8978-CK-GP; G8979-CI-GP; G8987-CK-GO; G8988-CJ-GO; J1580; J1644; J2250; J2370; J2405; J2550; J2720; J3010; J3370; J3475; P9016; P9045; P9047; Q9967